=== PATIENT | male | born 1955 | race Caucasian/White ===

== ENCOUNTER 2018-12-02 08:43 | Emergency (ER) | payer OTHER ==
[2018-12-02] MEDS ORDERED: TETANUS & DIPHTHERIA TOX,ADULT 0.5 ML VIAL ONE (09:36)
--- NOTE | 2018-12-02 10:17 | RAD REPORT ---
EXAM DESCRIPTION: RAD - Knee Right 3 View - 12/02/2018 9:56 am CLINICAL HISTORY: PAIN Fall from 8-10 feet COMPARISON: No comparisons FINDINGS: Severe arthritic changes are present involving the knee. Evidence of previous ACL reconstr uction seen. Calcifications along the medial collateral ligament noted. Small to moderate suprapatell ar joint effusion present. No evidence of acute fracture.
--- NOTE | 2018-12-02 10:19 | RAD REPORT ---
EXAM DESCRIPTION: RAD - Ankle Left 3 View - 12/02/2018 9:58 am CLINICAL HISTORY: PAIN Fall from height, ankle pain COMPARISON: No comparisons FINDINGS: Degenerative changes are present involving foot and ankle region. Soft tissue swelling is seen along the mediolateral aspects of the ankle. No acute fracture or dislocation.
--- NOTE | 2018-12-02 10:30 | RAD REPORT ---
EXAM DESCRIPTION: RAD - Foot Right 3 View - 12/02/2018 10:00 am CLINICAL HISTORY: Right foot pain status post injury FINDINGS: Cortical irregularity involves the first distal phalanx which is suspicious for a nondispl aced fracture. This should be correlated clinically. Fusion involves the fifth middle and distal phalanx. The phalanx is dislocated laterally. Clinical co rrelation is needed to see if this is acute. Bones are osteoporotic
--- NOTE | 2018-12-02 10:45 | ER ---
Nurse's Notes [facility] Name: Macario Munoz Age: 63 yrs Sex: Male : 1955 Arrival Date: 12/02/2018 Time: 08:45 Bed 7 Private MD: Diagnosis: Contusion of right knee;Laceration without foreign body of knee;Sprain of other ligament of left ankle;Nondisplaced fracture of distal phalanx of right great toe;Abrasion of left hand;Fall on and from ladder Presentation: 12/02 08:53 Presenting complaint: Patient states: Fell 8-10 Feet off of ladder at 1200 yesterday. ss Pt c/o R knee, R toe, L ankle mild L hand pain. Denies LOC, SOB and or chest pain. Transition of care: patient was not received from another setting of care. Onset of symptoms was December 02, 2018. Risk Assessment: Do you want to hurt yourself or someone else? Patient reports no desire to harm self or others. Initial Sepsis Screen: Does the patient meet any 2 criteria? No. Patient's initial sepsis screen is negative. Does the patient have a suspected source of infection? No. Patient's initial sepsis screen is negative. Care prior to arrival: None. 08:53 Method Of Arrival: Wheelchair ss 08:53 Acuity: JUSTIN 4 ss Triage Assessment: 11:12 General: Appears in no apparent distress. Behavior is calm, cooperative, appropriate tw2 for age. Historical: - Allergies: 08:54 PENICILLINS; ss - PMHx: 08:54 Hypertension; ss - PSHx: 08:54 Knee surgery; ss - Immunization history:: Adult Immunizations up to date. - Social history:: Smoking status: Patient/guardian denies using tobacco. - Ebola Screening: : Patient denies exposure to infectious person Patient denies travel to an Ebola-affected area in the 21 days before illness onset. Screenin:27 Abuse screen: Denies threats or abuse. Nutritional screening: No deficits noted. tw2 Tuberculosis screening: No symptoms or risk factors identified. Fall Risk Secondary diagnosis (15 points) impaired mobility. Assessment: 09:15 General: Appears in no apparent distress. uncomfortable, well developed, Behavior is sv calm, cooperative, appropriate for age. Pain: Complains of pain in left hand, right first toe, Right first toenail, right knee, left lateral ankle and left medial ankle Pain currently is 6 out of 10 on a pain scale. Pain began 1 day ago. Is intermittent. Neuro: Level of Consciousness is awake, alert, obeys commands, Oriented to person, place, time, situation, Moves all extremities. Full function Gait is steady, Speech is normal. Respiratory: Airway is patent Respiratory effort is even, unlabored, Respiratory pattern is regular, symmetrical. Derm: Skin is pink, warm \T\ dry. Musculoskeletal: Range of motion: intact in all extremities, Swelling present in left lateral ankle and left medial ankle. Injury Description: Abrasion sustained to left hand and right knee is scabbed, was sustained 1 day ago. 09:45 Reassessment: Xray at the bedside. sv 11:11 Reassessment: Patient appears in no apparent distress at this time. No changes from tw2 previously documented assessment. Patient and/or family updated on plan of care and expected duration. Pain level reassessed. Patient is alert, oriented x 3, equal unlabored respirations, skin warm/dry/pink. Vital Signs: 08:54 BP 124 / 76; Pulse 89; Resp 16; Temp 99.2(TE); Pulse Ox 99% on R/A; Weight 98.88 kg; ss Height 6 ft. 4 in. (193.04 cm); Pain 6/10; 08:54 Body Mass Index 26.54 (98.88 kg, 193.04 cm) ED Course: 08:45 Patient arrived in ED. as 08:54 Triage completed. ss 08:54 Arm band placed on right wrist. ss 08:55 Bed in low position. Call light in reach. Side rails up X2. monitoring and evaluation advisor on. Pulse tw2 ox on. NIBP on. 08:59 Eryn Jaimes FNP-C is PHCP. kb 08:59 Roger Vidal MD is Attending Physician. kb 09:04 Shayna Payan RN is Primary Nurse. sv 09:30 Wound care: to abrasion, located on left hand and right knee was cleaned with sv Hibiclens, dressed with Neosporin, band aid, Patient tolerated well. 09:53 X-ray completed. Portable x-ray completed in exam room. Patient tolerated procedure jb2 well. 09:54 Foot Right 3 View XRAY In Process Unspecified. EDMS 09:54 Ankle Left 3 View XRAY In Process Unspecified. EDMS 09:54 Knee Right 3 View XRAY In Process Unspecified. EDMS 11:11 No provider procedures requiring assistance completed. Patient did not have IV access tw2 during this emergency room visit. Administered Medications: 09:38 Drug: Tetanus-Diphtheria Toxoid Adult 0.5 ml {Mixed Animal Veterinarian: [place]. Exp: sv 10/03/2020. Lot #: [id number]. } Route: IM; Site: right deltoid; 10:00 Follow up: Response: No adverse reaction sv 11:02 Drug: [place] (7.5 mg-325 mg) 1 tabs Route: PO; tw2 11:11 Follow up: Response: No adverse reaction tw2 Outcome: 10:45 Discharge ordered by . kb 11:11 Discharged to home ambulatory, with significant other. tw2 11:11 Condition: stable 11:11 Discharge instructions given to patient, family, Instructed on discharge instructions, follow up and referral plans. no drinking with medication, no driving heavy equipment, medication usage, Demonstrated understanding of instructions, follow-up care, medications, Prescriptions given X 1. 11:12 Patient left the ED. tw2 Signatures: Dispatcher [employer] EDMS Eryn Jaimes, TUBE FORMER OPERATOR-C TUBE FORMER OPERATOR-Shayna Thomas, RN Toño Garcia Amelia as Smirch, Shelby, RN RN ss Wise, Tara, RN RN tw2
--- NOTE | 2018-12-02 10:46 | EDPHYS ---
Physician Documentation [facility] Name: Macario Munoz Age: 63 yrs Sex: Male : 1955 Arrival Date: 12/02/2018 Time: 08:45 Bed 7 Private MD: ED Physician Roger Vidal HPI: 12/02 09:42 This 63 yrs old Male presents to ER via Wheelchair with complaints of Fall kb Injury. 09:42 Details of fall: The patient fell from a height, from a ladder, approximately 10 feet. kb Onset: The symptoms/episode began/occurred yesterday. Associated injuries: The patient sustained left hand, abrasion, right knee, laceration, painful injury, left medial ankle, painful injury, right first toe, painful injury. Severity of symptoms: At their worst the symptoms were moderate, in the emergency department the symptoms are unchanged. The patient has not experienced similar symptoms in the past. The patient has not recently seen a physician. Pt states he was on a ladder and it fell forward yesterday around 1400. States he did not hit his head, no loc. Main concern is right great toe, but also has pain to right knee, left ankle and skin tears to left hand. Historical: - Allergies: 08:54 PENICILLINS; ss - PMHx: 08:54 Hypertension; ss - PSHx: 08:54 Knee surgery; ss - Immunization history:: Adult Immunizations up to date. - Social history:: Smoking status: Patient/guardian denies using tobacco. - Ebola Screening: : Patient denies exposure to infectious person Patient denies travel to an Ebola-affected area in the 21 days before illness onset. ROS: 09:42 Constitutional: Negative for fever, chills, and weight loss, Cardiovascular: Negative kb for chest pain, palpitations, and edema, Respiratory: Negative for shortness of breath, cough, wheezing, and pleuritic chest pain, Abdomen/GI: Negative for abdominal pain, nausea, vomiting, diarrhea, and constipation, Neuro: Negative for headache, weakness, numbness, tingling, and seizure. 09:42 MS/extremity: Positive for abrasion, pain, of the left hand and left medial ankle and right knee and right first toe. Exam: 09:40 Constitutional: This is a well developed, well nourished patient who is awake, alert, kb and in no acute distress. Head/Face: Normocephalic, atraumatic. Neck: Trachea midline, no thyromegaly or masses palpated, and no cervical lymphadenopathy. Supple, full range of motion without nuchal rigidity, or vertebral point tenderness. No Meningismus. Chest/axilla: Normal chest wall appearance and motion. Nontender with no deformity. No lesions are appreciated. Cardiovascular: Regular rate and rhythm with a normal S1 and S2. No gallops, murmurs, or rubs. Normal PMI, no JVD. No pulse deficits. Respiratory: Lungs have equal breath sounds bilaterally, clear to auscultation and percussion. No rales, rhonchi or wheezes noted. No increased work of breathing, no retractions or nasal flaring. Abdomen/GI: Soft, non-tender, with normal bowel sounds. No distension or tympany. No guarding or rebound. No evidence of tenderness throughout. Neuro: Awake and alert, GCS 15, oriented to person, place, time, and situation. Cranial nerves II-XII grossly intact. Motor strength 5/5 in all extremities. Sensory grossly intact. Cerebellar exam normal. Normal gait. 09:40 Musculoskeletal/extremity: Extremities: grossly normal except: noted in the right first toe: pain, noted in the right knee: pain, noted in the left medial ankle: pain, Noted in left hand: abrasion, ROM: intact in all extremities, Circulation is intact in all extremities. Sensation intact. Weight bearing: able to fully bear weight. Vital Signs: 08:54 BP 124 / 76; Pulse 89; Resp 16; Temp 99.2(TE); Pulse Ox 99% on R/A; Weight 98.88 kg; ss Height 6 ft. 4 in. (193.04 cm); Pain 6/10; 08:54 Body Mass Index 26.54 (98.88 kg, 193.04 cm) ss MDM: 08:59 Patient medically screened. kb 09:40 Data reviewed: vital signs, nurses notes. Data interpreted: Pulse oximetry: on room air kb is 99 %. Interpretation: normal. 10:35 Counseling: I had a detailed discussion with the patient and/or guardian regarding: the kb historical points, exam findings, and any diagnostic results supporting the discharge/admit diagnosis, radiology results, the need for outpatient follow up, a family practitioner, to return to the emergency department if symptoms worsen or persist or if there are any questions or concerns that arise at home. 12/02 09:15 Order name: Foot Right 3 View XRAY; Complete Time: 10:31 kb 12/02 09:15 Order name: Ankle Left 3 View XRAY; Complete Time: 10:20 kb 12/02 09:15 Order name: Wound Care; Complete Time: 09:38 kb 12/02 09:37 Order name: Knee Right 3 View XRAY; Complete Time: 10:20 kb 12/02 11:03 Order name: Post-op shoe; Complete Time: 11:11 kb Administered Medications: 09:38 Drug: Tetanus-Diphtheria Toxoid Adult 0.5 ml {Sales And Marketing Professional: [employer]. Exp: sv 10/03/2020. Lot #: [id number]. } Route: IM; Site: right deltoid; 10:00 Follow up: Response: No adverse reaction sv 11:02 Drug: [place] (7.5 mg-325 mg) 1 tabs Route: PO; tw2 11:11 Follow up: Response: No adverse reaction tw2 Disposition: 15:05 Co-signature as Attending Physician, Roger Vidal MD I agree with the assessment and blake plan of care. Disposition: 12/02/18 10:45 Discharged to Home. Impression: Contusion of right knee, Laceration without foreign body of knee, Sprain of other ligament of left ankle, Nondisplaced fracture of distal phalanx of right great toe, Abrasion of left hand, Fall on and from ladder. - Condition is Stable. - Discharge Instructions: Ankle Sprain, [id number], Contusion, [id number], Laceration Care, Adult, [id number], Knee Pain, [id number]. - Prescriptions for Tramadol 50 mg Oral Tablet - take 1 tablet by ORAL route every 8 hours as needed; 12 tablet. - Medication Reconciliation Form, Thank You Letter, Antibiotic Education, Prescription Opioid Use form. - Follow up: Emergency Department; When: As needed; Reason: Worsening of condition. Follow up: Private Physician; When: 2 - 3 days; Reason: Recheck today's complaints, Continuance of care, Re-evaluation by your physician. Signatures: Dispatcher [employer] Eryn Borrego, SUKHI DEPUTY CHIEF MAGISTRATE-Shayna Thomas RN RN Roger Garcia MD MD cha Smirch, Shelby, RN RN Jessica Hubbard RN RN tw2 Corrections: (The following items were deleted from the chart) 11:12 10:45 12/02/2018 10:45 Discharged to Home. Impression: Contusion of right knee; tw2 Laceration without foreign body of knee; Sprain of other ligament of left ankle; Nondisplaced fracture of distal phalanx of right great toe; Abrasion of left hand; Fall on and from ladder. Condition is Stable. Forms are Medication Reconciliation Form, Thank You Letter, Antibiotic Education, Prescription Opioid Use. Follow up: Emergency Department; When: As needed; Reason: Worsening of condition. Follow up: Private Physician; When: 2 - 3 days; Reason: Recheck today's complaints, Continuance of care, Re-evaluation by your physician. kb
[2018-12-02] MEDS ORDERED: HYDROCODONE/APAP 7.5/325 MG TAB ONE (11:09)
== END 2018-12-02 11:12 | disposition home or self-care (01) ==
LOC: ER 08:43
DX: S60.512A Abrasion of left hand, initial encounter (principal); S80.01XA Contusion of right knee, initial encounter; S81.011A Laceration without foreign body, right knee, initial encounter; S93.402A Sprain of unspecified ligament of left ankle, initial encounter; S92.424A Nondisplaced fracture of distal phalanx of right great toe, initial encounter for closed fracture; W11.XXXA Fall on and from ladder, initial encounter; Z23 Encounter for immunization
CPT/HCPCS: 90714; 99284